=== PATIENT | female | born 2000 | race Caucasian/White ===

== ENCOUNTER 2019-01-08 00:18 | Emergency (ER) | payer BC, SELFPAY ==
[2019-01-08 00:27] VITALS: BP 137/97; PULSE 112; RESP 20; TEMP 37.1; O2SAT 95; BMI 26.6
--- NOTE | 2019-01-08 00:32 | CT_ITS ---
CT abdomen pelvis w con INDICATION: Lower abdominal pain and back pain with nausea, vomiting, fever x3 days ITS.REASON: abdominal pain ORDERING PHYSICIAN: Gene Roberto MD PATIENT AGE: 18 years COMPARISON: Previous CT abdomen July 2017 . TECHNIQUE: IV contrast. 75 cc Optiray 350. No oral contrast utilized. Axial images obtained with sagittal and coronal reformats. All CT scans at the facility use one or more dose reduction, viz: automated exposure control, ma/kV adjustment per patient size (including targeted exams where dose is matched to indication, i.e. head), or iterative reconstruction technique. FINDINGS: Lung bases clear nothing acute heart normal size. Abdomen: . Liver: unremarkable.. No focal lesions. No ductal dilatation. Spleen: unremarkable. Pancreas: Appears satisfactory. Adrenals unremarkable. Gallbladder.. Cannot exclude sludge but no discrete calcified stones. No wall thickening. No acute findings. No biliary ductal dilatation tract Kidneys. No urinary tract calculi nor obstruction. kidneys demonstrate normal enhancement in appearance bilaterally with no hydronephrosis nor mass. ureters are unremarkable. Normal caliber bilateral with no obstruction Pelvis. Right Ovary Moderate-measuring up to 3.4 cm in length 3.6 cm height 2.5 cm AP. Appears to contain numerous small follicles throughout Left Ovary. Similar sized 3.4 cm length x 3.2 cm x 2.6 cm. Likely numerous follicles throughout. Consider pelvic ultrasound further evaluate No free fluid at the pelvis. The uterus appears normal in size anteverted nabothian cyst 6 mm size. GI Tract . Appendix is normal. Large bowel. Minimal liquid stool right colon with question of minimal low-density wall thickening at the right colon. Nonspecific but can reflect some chronic inflammation.. Moderate gas at the transverse colon with minimal stool and gas descending colon and rectosigmoid.\ Small bowel. On normal caliber upper normal wall thickness. Moderate fluid with a few small air-fluid levels but unimpressive overall There are some scattered small nodes in the mesentery most evident towards right lower quadrant. The largest measuring 8 mm in size but similar appearance seen in 2017. Bones. No lesions. No remarkable findings. ...... IMPRESSION: ......... 1. No discrete acute findings abdomen or pelvis.. no bowel dilatation nor obstruction evident. Appendix normal 2. Other Minor observations: .A.. Suggestion Minimal liquid stool right colon, with question of minimal low-density wall thickening right colon.- Nonspecific but could reflect some minor chronic inflammation... Remainder of colon unremarkable. .Slight increased number of Small mesenteric lymph nodes towards RLQ may reflect the same. However I note that these are fairly stable since 2017 ... Unimpressive observation but noted for completeness, particularly if chronic GI symptoms B. Ovaries are normal in size but appear contain numerous small follicles throughout If lower pelvic pain consider pelvic ultrasound.
--- NOTE | 2019-01-08 00:32 | XR_ITS ---
XR chest 2V HISTORY: ITS.REASON: cough, congestion ORDERING PHYSICIAN: Gene Roberto MD PATIENT AGE: 18 years Technique: PA and lateral chest COMPARISON: CT abdomen from today which includes lung bases No previous chest film FINDINGS: The lungs are well expanded and clear with nothing definitely acute. The CT from today includes lung bases with no acute findings at the lung bases. The current lateral film shows upper normal markings toward the lower lobes particularly on the right but I believe this may reflect some atelectasis right base more so than left. Not convinced for pneumonic infiltrate. Upper lung chavira are clear. No pleural effusion. No pneumothorax. The cardiomediastinal silhouette and pulmonary vascularity are within normal limits. No acute bony abnormalities. Chest wall unremarkable T-spine intact. ... IMPRESSION:...... Nothing definitely acute. Upper normal markings lower lobe lateral film- most likely reflect mild atelectasis towards RLL. (Doubt subtle early infiltrate. But if If symptoms should progress consider follow-up)
[2019-01-08 00:54] LABS: Microscopic, Urine URINE MICROSCOPIC (MICROSCOPIC)
[2019-01-08 01:03] LABS: Appearance,Urine CLEAR (Clear); Blood, Urine Negative (Negative); Color,Urine YELLOW (Yellow); Glucose,Urine (UA) Negative (Negative); Ketones,Urine 2+ (Negative); Leukocyte Esterase,Urine Negative (Negative); Nitrate,Urine Negative (Negative); Protein,Urine TRACE (Negative); Specific Gravity, Urine 1.025 (1.005-1.030); Strep Scrn Group A (Rapid) Negative (Negative); Urine Pregnancy, HCG Qual. Negative (Negative)
[2019-01-08 01:08] LABS: Bilirubin,Urine Negative (Negative); WBC,Urine Occasional #/hpf (0-3)
[2019-01-08 01:20] LABS: Lactic Acid 1.1 mmol/L (0.4-2.0)
[2019-01-08 01:30] LABS: Basophils % 0.1 % (0.1-2.0); Eosinophils % 0.1 % (0.1-12.0); Hematocrit 41.6 % (37.0-47.0); Hemoglobin 13.3 g/dL (12.2-16.2); Lymphocytes # 1.8 K/mm3 (0.7-4.5); Lymphocytes % 6.7 % (10-50); Mean Corpuscular Hemoglobin 26.9 pg (27.0-31.2); Mean Corpuscular Volume 83.9 fl (81-99); Mean Platelet Volume 7.8 fl (7.4-10.4); Monocytes # 1.9 K/mm3 (0.1-1.0); Monocytes % 6.7 % (1.7-9.3); Neutrophils # 23.8 K/mm3 (1.8-7.8); Neutrophils % 86.4 % (37.0-80.0); Platelet Count 320 K/mm3 (142-424); Red Blood Count 4.95 M/mm3 (4.20-5.40); Red Cell Distribution Width 13.7 % (11.5-17.5)
[2019-01-08 01:35] LABS: MANUAL DIFFERENTIAL MANUAL DIFFERENTIAL (MANUAL DIFF); White Blood Count 27.5 K/mm3 (4.5-13.0)
[2019-01-08 01:45] LABS: Alanine Aminotransferase 28 U/L (12-78); Albumin Level 3.8 gm/dL (3.4-5.0); Albumin/Globulin Ratio 0.9 (1.1-1.8); Alkaline Phosphatase 92 U/L (46-116); Anion Gap 17.3 mEq/L (5-15); Aspartate Amino Transferase 10 U/L (15-37); Bilirubin,Total 0.9 mg/dL (0.2-1.0); Blood Urea Nitrogen 7 mg/dL (7-18); Calcium 9.4 mg/dL (8.5-10.1); Carbon Dioxide 25 mmol/L (21.0-32.0); Chloride 98 mmol/L (98-107); Creatinine Clearance Estimated 127 mL/min (50-200); Creatinine,Serum 0.86 mg/dL (0.55-1.02); Estimated Glomerular Filt Rate 84 ml/min (>60); GFR (African American) 102 ML/MIN (>60); Globulin 4.3 gm/dl (1.3-3.2); Glucose 125 mg/dL (74-106); Potassium 3.3 mmoL/L (3.5-5.1); Sodium 137 mmol/L (136-145); Total Protein,Serum 8.1 gm/dL (6.4-8.2)
[2019-01-08 01:47] LABS: C-Reactive Protein 22.8 mg/L (0.0-0.9)
[2019-01-08 02:05] LABS: Lymphocytes % 13 % (10-50); Monocytes % 2 % (2-9); Neutrophils % 73 % (42-76); Platelet Estimate Normal; RBC Morphology Normal; Total Cells Counted 100
[2019-01-08 02:10] VITALS: TEMP 37.8
[2019-01-08 02:19] VITALS: BP 121/68; PULSE 89; RESP 20; TEMP 37.3; O2SAT 98
[2019-01-08 02:28] LABS: Erythrocyte Sedimentation Rate 22 mm/hr (0-20)
[2019-01-08 02:37] LABS: Amylase 25 U/L (25-115); Lipase 47 u/L (73-393)
--- NOTE | 2019-01-08 03:21 | [facility].EDNVD ---
ED Disposition Clinical Impression: Bronchitis Leukocytosis Qualifiers: Leukocytosis type: unspecified Qualified Code(s): D72.829 - Elevated white blood cell count, unspecified Disposition: Home, Self-Care Condition on Discharge: Good Instructions: DI for Cough -- Adult Additional Instructions: fluids and see pcp for follow up and recheck thursday and recheck if needed Prescriptions: Azithromycin [Zithromax 250mg tab] 250 mg PO DIRECTED #6 tab Ondansetron HCl [Zofran 4mg Tab] 4 mg PO TID #15 tab Referrals: Provider,Referral, [Primary Care Provider] - - Critical Care Critical Care Time: No Attestation: On 01/08/19, the high probability of a clinically significant, sudden or life threatening deterioration of the following system(s) required my full and direct attention, intervention and personal management. The time I documented below is in addition to time spent performing reported procedures but includes the following listed in this critical care notation. Medical Decision Making - Medical Records Medical records reviewed: Yes: I reviewed the patient's medical records. - Shaq Inquiry Pt receiving controlled substance: No Vital Signs: 01/08/19 00:27 01/08/19 02:10 01/08/19 02:19 Temperature 98.8 F 100.0 F H 99.2 F Temperature Source Oral Oral Oral Pulse Rate [Right] 112 H 89 Respiratory Rate 20 20 Blood Pressure [Right Arm] 137/97 H 121/68 Blood Pressure Mean [Right Arm] 110 85 02 Sat by Pulse Oximetry 95 98 Oxygen Delivery Method Room Air Room Air - Lab Data Lab results reviewed: Yes: I reviewed the patient's lab results. Lab Results 01/08/19 00:50: Urine Color Yellow, Urine Appearance Clear, Urine pH 6.0, Ur Specific [place] 1.025, Urine Protein Trace, Urine Glucose (UA) Negative, Urine Ketones 2+, Urine Blood Negative, Urine Nitrate Negative, Urine Bilirubin Negative, Urine Urobilinogen 2.0, Ur Leukocyte Esterase Negative, Urine WBC Occasional, Ur Squamous Epith Cells 10-20 01/08/19 00:50: Urine HCG, Qual Negative 01/08/19 00:50: Influenza Type A Ag Negative, Influenza Type B Ag Negative 01/08/19 00:50: Group A Strep Rapid Negative 01/08/19 00:56: Lactate 1.1 01/08/19 01:08: WBC 27.5 H*, RBC 4.95, Hgb 13.3, Hct 41.6, MCV 83.9, MCH 26.9 L, MCHC 32.0, RDW 13.7, Plt Count 320, MPV 7.8, Neut % (Auto) 86.4 H, Lymph % (Auto) 6.7 L, [place] % (Auto) 6.7, Eos % (Auto) 0.1, Baso % (Auto) 0.1, Neut # (Auto) 23.8 H, Lymph # (Auto) 1.8, [place] # (Auto) 1.9 H, Eos # (Auto) 0.0, Baso # (Auto) 0.0, Total Counted 100, Neutrophils % (Manual) 73, Band Neutrophils % 12.0 H, Lymphocytes % (Manual) 13, Monocytes % (Manual) 2, Platelet Estimate Normal, RBC Morphology Normal, ESR 22 H 01/08/19 01:08: Sodium 137, Potassium 3.3 L, Chloride 98, Carbon Dioxide 25, Anion Gap 17.3 H, BUN 7, Creatinine 0.86, Estimated Creat Clear 127, Estimated GFR 84, Est GFR ( Amer) 102, Glucose 125 H, Calcium 9.4, Total Bilirubin 0.9, AST 10 L, ALT 28, Alkaline Phosphatase 92, C-Reactive Protein 22.8 H, Total Protein 8.1, Albumin 3.8, Globulin 4.3 H, Albumin/Globulin Ratio 0.9 L 01/08/19 01:08: Amylase 25, Lipase 47 L 01/08/19 01:08: Mycoplasma pneumon IgM Non-reactive Result diagrams: 01/08/19 01:08 01/08/19 01:08 Orders (Tests/Meds): ED MEDICATIONS Generic Name Dose Route Start Last Admin Trade Name Freq PRN Reason Stop Dose Admin Sodium Chloride 1,000 mls @ 999 mls/hr 01/08/19 00:45 01/08/19 01:05 Sod Chlor 0.9% 1000ml Bag IV 01/08/19 01:45 999 mls/hr .[id number] BORIS Administration Discontinued Medications Generic Name Dose Route Start Last Admin Trade Name Freq PRN Reason Stop Dose Admin Acetaminophen 650 mg 01/08/19 02:25 01/08/19 02:15 Acetaminophen 325mg Tab PO 01/08/19 02:26 650 mg ONCE ONE Administration Ceftriaxone Sodium 1 gm 01/08/19 03:36 01/08/19 03:43 Rocephin 1gm Vial IV 01/08/19 03:37 1 gm ONCE ONE Administration Protocol Ioversol 75 ml 01/08/19 02:00
--- NOTE | 2019-01-08 03:33 | ED_ITS ---
ED Disposition Clinical Impression: Bronchitis Leukocytosis Qualifiers: Leukocytosis type: unspecified Qualified Code(s): D72.829 - Elevated white blood cell count, unspecified Disposition: Home, Self-Care Condition on Discharge: Good Instructions: DI for Cough -- Adult Additional Instructions: fluids and see pcp for follow up and recheck thursday and recheck if needed Prescriptions: Azithromycin [Zithromax 250mg tab] 250 mg PO DIRECTED #6 tab Ondansetron HCl [Zofran 4mg Tab] 4 mg PO TID #15 tab Referrals: Provider,Referral, [Primary Care Provider] - - Critical Care Critical Care Time: No Attestation: On 01/08/19, the high probability of a clinically significant, sudden or life threatening deterioration of the following system(s) required my full and direct attention, intervention and personal management. The time I documented below is in addition to time spent performing reported procedures but includes the following listed in this critical care notation. Medical Decision Making - Medical Records Medical records reviewed: Yes: I reviewed the patient's medical records. - Shaq Inquiry Pt receiving controlled substance: No Vital Signs: 01/08/19 00:27 01/08/19 02:10 01/08/19 02:19 Temperature 98.8 F 100.0 F H 99.2 F Temperature Source Oral Oral Oral Pulse Rate [Right] 112 H 89 Respiratory Rate 20 20 Blood Pressure [Right Arm] 137/97 H 121/68 Blood Pressure Mean [Right Arm] 110 85 02 Sat by Pulse Oximetry 95 98 Oxygen Delivery Method Room Air Room Air - Lab Data Lab results reviewed: Yes: I reviewed the patient's lab results. Lab Results 01/08/19 00:50: Urine Color Yellow, Urine Appearance Clear, Urine pH 6.0, Ur Specific [place] 1.025, Urine Protein Trace, Urine Glucose (UA) Negative, Urine Ketones 2+, Urine Blood Negative, Urine Nitrate Negative, Urine Bilirubin Negative, Urine Urobilinogen 2.0, Ur Leukocyte Esterase Negative, Urine WBC Occasional, Ur Squamous Epith Cells 10-20 01/08/19 00:50: Urine HCG, Qual Negative 01/08/19 00:50: Influenza Type A Ag Negative, Influenza Type B Ag Negative 01/08/19 00:50: Group A Strep Rapid Negative 01/08/19 00:56: Lactate 1.1 01/08/19 01:08: WBC 27.5 H*, RBC 4.95, Hgb 13.3, Hct 41.6, MCV 83.9, MCH 26.9 L, MCHC 32.0, RDW 13.7, Plt Count 320, MPV 7.8, Neut % (Auto) 86.4 H, Lymph % (Auto) 6.7 L, [place] % (Auto) 6.7, Eos % (Auto) 0.1, Baso % (Auto) 0.1, Neut # (Auto) 23.8 H, Lymph # (Auto) 1.8, [place] # (Auto) 1.9 H, Eos # (Auto) 0.0, Baso # (Auto) 0.0, Total Counted 100, Neutrophils % (Manual) 73, Band Neutrophils % 12.0 H, Lymphocytes % (Manual) 13, Monocytes % (Manual) 2, Platelet Estimate Normal, RBC Morphology Normal, ESR 22 H 01/08/19 01:08: Sodium 137, Potassium 3.3 L, Chloride 98, Carbon Dioxide 25, Anion Gap 17.3 H, BUN 7, Creatinine 0.86, Estimated Creat Clear 127, Estimated GFR 84, Est GFR ( Amer) 102, Glucose 125 H, Calcium 9.4, Total Bilirubin 0.9, AST 10 L, ALT 28, Alkaline Phosphatase 92, C-Reactive Protein 22.8 H, Total Protein 8.1, Albumin 3.8, Globulin 4.3 H, Albumin/Globulin Ratio 0.9 L 01/08/19 01:08: Amylase 25, Lipase 47 L 01/08/19 01:08: Mycoplasma pneumon IgM Non-reactive Result diagrams: 01/08/19 01:08 01/08/19 01:08 Orders (Tests/Meds): ED MEDICATIONS Generic Name Dose Route Start Last Admin Trade Name F
[2019-01-08 04:01] LABS: Mycoplasma Pneumo IGM (Rapid) Non-Reactive (Non-Reactiv)
[2019-01-08 04:24] VITALS: BP 118/64; PULSE 89; RESP 18; TEMP 37.3; O2SAT 98
== END 2019-01-08 04:25 | disposition home or self-care (01) ==
PROVIDERS: Emergency Provider Emergency Medicine
DX: J20.9 Acute bronchitis, unspecified (principal); D72.829 Elevated white blood cell count, unspecified; F17.210 Nicotine dependence, cigarettes, uncomplicated
CPT/HCPCS: 71046; 74177; 80053; 81001; 81025; 82150; 83605; 83690; 85007; 85025; 85651; 86140; 86738; 87040; 87077; 87186; 87275; 87276; 87430; 96365; 96367; 96375; 99284; J2405; Q9967